=== PATIENT | female | born 2000 | race Asian ===

== ENCOUNTER 2022-05-01 21:43 | Emergency (ER) | payer SELFPAY ==
[2022-05-01 22:21] LABS: #Basophils 0.1 thou/uL (0.0-0.2); #Eosinphils 0.1 thou/uL (0.0-0.7); #Lymphocytes 3.4 thou/uL (1.20-3.40); #Monocytes 0.8 thou/uL (0.11-0.59); %Basophils 1.1 % (0.0-1.0); %Eosinophils 0.9 % (0.0-10.0); %Lymphocytes 29.7 % (21.0-51.0); %Monocytes 6.8 % (0.0-10.0); %Neutrophils 61.6 % (42.0-75.0); Hemoglobin 11.7 g/dL (12.0-16.0); Mean Corpuscular HGB CONC 32.7 g/dL (32.0-36.0); Mean Corpuscular Hemoglobin 26.6 pg (27.0-31.0); Mean Corpuscular Volume 81.3 fl (78.0-98.0); Mean Platelet Volume 8.4 fL (7.4-10.4); Platelet Count 265 10x3/uL (130-400); RBC Distribution Width 11.2 % (11.5-14.5); White Blood Cell (WBC) Count 11.3 10x3/uL (4.8-10.8)
[2022-05-01 22:41] LABS: ALT (SGPT) 11 U/L (8-55); AST (SGOT) 19 U/L (5-34); Albumin 4.4 g/dL (3.5-5.0); Alkaline Phosphatase 57 U/L (40-110); Anion Gap 12 mmol/L (10-20); BUN (Urea Nitrogen) 11 mg/dL (7.0-18.7); Bilirubin, Total 0.4 mg/dL (0.2-1.2); Calc. Creatinine Clearance 0 mL/min (70-130); Calcium 10.4 mg/dL (7.8-10.44); Carbon Dioxide 24 mmol/L (22-29); Chloride 107 mmol/L (98-107); Estimated GFR 122; Globulin 3.3 g/dL (2.4-3.5); Glucose 101 mg/dL (70-105); Protein, Total 7.7 g/dL (6.0-8.3); Sodium 139 mmol/L (136-145)
[2022-05-02] MEDS ORDERED: ALPRAZolam 0.25 MG TAB ONE (00:23)
[2022-05-02] MEDS ORDERED: Aspirin 81 mg Enteric Coated Tablet ONE (00:44)
[2022-05-02] MEDS ORDERED: Iopamidol 370 76% 100 ML VIAL ONE (08:59)
== END 2022-05-02 05:22 | disposition home or self-care (01) ==
LOC: ERS 21:43
DX: R07.89 Other chest pain (principal)
CPT/HCPCS: 36415; 71045; 71275; 80053; 84484; 85025; 85379; 93005; Q9967